=== PATIENT | male | born 1945 | race Caucasian/White ===

== ENCOUNTER 2017-10-07 15:01 | Emergency (ER) | payer SELFPAY ==
[~2017-10-07] VITALS: Ht 167.6 cm; Wt 66.0 kg
[2017-10-07 15:46] LABS: BASOPHILS # (AUTO) 0.03 x10^3/uL (0-0.1); BASOPHILS % (AUTO) 1 % (0-1); EOSINOPHILS # (AUTO) 0.03 x10^3/uL (0-0.4); EOSINOPHILS % (AUTO) 1 % (1-7); LYMPHOCYTES # (AUTO) 1.64 x10^3/uL (1-3.4); LYMPHOCYTES % (AUTO) 27 % (22-44); MD NO; MEAN CORPUSCULAR HEMOGLOBIN 32.3 pg (27.5-34.5); MEAN CORPUSCULAR HGB CONC 34.7 g/dL (33.2-36.2); MEAN PLATELET VOLUME 8.1 fL (7.4-10.4); MONOCYTES # (AUTO) 0.59 x10^3/uL (0.2-0.8); MONOCYTES % (AUTO) 10 % (2-9); NEUTROPHILS # (AUTO) 3.85 x10^3/uL (1.8-6.8); NEUTROPHILS % (AUTO) 63 % (42-75); PLATELET COUNT 237 x10^3/uL (130-400); RED CELL DISTRIBUTION WIDTH 13.1 % (9.4-14.8)
[2017-10-07 15:55] LABS: ALBUMIN 3.6 g/dL (3.4-5.0); ANION GAP 8 mmol/L (5-15); CALCIUM 9.2 mg/dL (8.5-10.1); CHLORIDE 100 mmol/L (98-107); CREATININE 1.36 mg/dL (0.7-1.3)
[2017-10-07] MEDS ORDERED: LOSARTAN (17:32)
[2017-10-07] MEDS ORDERED: LANTUS (17:33)
[2017-10-07] MEDS ORDERED: TIZANIDINE (17:33)
[2017-10-07 17:59] VITALS: BP 150/86
== END 2017-10-07 18:09 | disposition home or self-care (01) ==
LOC: ED 18:00
DX: L03.116 Cellulitis of left lower limb (principal); E11.65 Type 2 diabetes mellitus with hyperglycemia; R10.9 Unspecified abdominal pain; R05 Cough; R06.00 Dyspnea, unspecified; L98.9 Disorder of the skin and subcutaneous tissue, unspecified; Z59.0 Homelessness
CPT/HCPCS: 36415; 36600; 71045; 80048; 82040; 82803; 83690; 85025; 99285

== ENCOUNTER 2017-10-09 18:51 | Emergency (ER) | payer OTHER ==
[~2017-10-09] VITALS: Ht 167.6 cm; Wt 59.1 kg
[~2017-10-09 18:51] MED LIST: LANTUS; LOSARTAN; TIZANIDINE
[2017-10-09] MEDS ORDERED: ACETAMINOPHEN 325 MG TABLET PO ONE (19:30)
[2017-10-09] MEDS ORDERED: ASPIRIN 81 MG TABLET CHEW PO ONE (19:30)
[2017-10-09 19:40] LABS: BASOPHILS # (AUTO) 0.02 x10^3/uL (0-0.1); BASOPHILS % (AUTO) 0 % (0-1); EOSINOPHILS # (AUTO) 0.09 x10^3/uL (0-0.4); EOSINOPHILS % (AUTO) 1 % (1-7); LYMPHOCYTES # (AUTO) 2.62 x10^3/uL (1-3.4); LYMPHOCYTES % (AUTO) 43 % (22-44); MD NO; MEAN CORPUSCULAR HEMOGLOBIN 31.8 pg (27.5-34.5); MEAN CORPUSCULAR VOLUME 93.4 fL (81-97); MONOCYTES # (AUTO) 0.59 x10^3/uL (0.2-0.8); MONOCYTES % (AUTO) 10 % (2-9); NEUTROPHILS # (AUTO) 2.83 x10^3/uL (1.8-6.8); NEUTROPHILS % (AUTO) 46 % (42-75); PLATELET COUNT 205 x10^3/uL (130-400); RED CELL DISTRIBUTION WIDTH 13.2 % (9.4-14.8)
[2017-10-09] MEDS ORDERED: ASPIRIN 81 MG TABLET CHEW ONE ×2 (19:40→19:43)
[2017-10-09] MEDS ORDERED: ACETAMINOPHEN 325 MG TABLET ONE (19:40)
[2017-10-09 19:44] LABS: ALBUMIN 3.2 g/dL (3.4-5.0); ANION GAP 7 mmol/L (5-15); CALCIUM 8.7 mg/dL (8.5-10.1); CHLORIDE 101 mmol/L (98-107)
[2017-10-09 19:51] LABS: ALANINE AMINOTRANSFERASE 54 U/L (12-78); ALKALINE PHOSPHATASE 130 U/L (45-117); BILIRUBIN,TOTAL 0.5 mg/dL (0.2-1.0); CREATININE 1.09 mg/dL (0.7-1.3); TOTAL PROTEIN 7.1 g/dL (6.4-8.2); TROPONIN I < 0.015 ng/mL (0.000-0.045)
[2017-10-09] MEDS ORDERED: OMNIPAQUE 350 MG/ML, 100ML BOTTLE ONE (20:57)
[2017-10-09 22:19] VITALS: BP 108/54
== END 2017-10-09 22:21 | disposition home or self-care (01) ==
LOC: ED 21:47
DX: R07.89 Other chest pain (principal); I10 Essential (primary) hypertension; E11.65 Type 2 diabetes mellitus with hyperglycemia
CPT/HCPCS: 36415; 71045; 71275; 80053; 83880; 84484; 85025; 85379; 93005; 99285; Q9967

== ENCOUNTER 2017-11-03 07:38 | Inpatient (IN) | payer MEDICARE ==
[~2017-11-03] VITALS: Ht 167.6 cm; Wt 67.0 kg
[2017-11-03] MEDS ORDERED: LOSA25TA6 PO (07:55)
[2017-11-03] MEDS ORDERED: ATOR40TA PO (07:55)
[2017-11-03] MEDS ORDERED: GABA300C10 PO (07:55)
[2017-11-03] MEDS ORDERED: ONDANSETRON ODT 4 MG ONE (07:57)
[2017-11-03] MEDS ORDERED: MAALOX/HYOSCYAMINE/LIDOCAINE 45 ML BTL ONE (07:57)
[2017-11-03] MEDS ORDERED: FAMOTIDINE 20 MG/2 ML ONE (07:57)
[2017-11-03] MEDS ORDERED: PLEASE ENTER HEIGHT AND WEIGHT MC SCH (08:00)
[2017-11-03] MEDS ORDERED: FAMOTIDINE 20 MG/2 ML IVP ONE (08:00)
[2017-11-03] MEDS ORDERED: SODIUM CHLORIDE 0.9% 1,000ML IVBOLUS ONE (08:00)
[2017-11-03] MEDS ORDERED: SODIUM CHLORIDE FLUSH 10ML SYR IVF ONE (08:00)
[2017-11-03] MEDS ORDERED: ONDANSETRON ODT 4 MG PO ONE (08:00)
[2017-11-03] MEDS ORDERED: MAALOX/HYOSCYAMINE/LIDOCAINE 45 ML BTL PO ONE (08:00)
[2017-11-03 08:07] LABS: BASOPHILS % (AUTO) 0 % (0-1); EOSINOPHILS # (AUTO) 0.04 x10^3/uL (0-0.4); EOSINOPHILS % (AUTO) 0 % (1-7); LYMPHOCYTES # (AUTO) 0.37 x10^3/uL (1-3.4); LYMPHOCYTES % (AUTO) 4 % (22-44); MD NO; MEAN CORPUSCULAR HGB CONC 33.8 g/dL (33.2-36.2); MEAN CORPUSCULAR VOLUME 91.8 fL (81-97); MEAN PLATELET VOLUME 8.5 fL (7.4-10.4); MONOCYTES # (AUTO) 0.16 x10^3/uL (0.2-0.8); MONOCYTES % (AUTO) 2 % (2-9); NEUTROPHILS # (AUTO) 9.16 x10^3/uL (1.8-6.8); NEUTROPHILS % (AUTO) 94 % (42-75); PLATELET COUNT 158 x10^3/uL (130-400); RED BLOOD COUNT 5.11 x10^6/uL (4.38-5.82); RED CELL DISTRIBUTION WIDTH 13.6 % (9.4-14.8)
[2017-11-03 08:18] LABS: ALANINE AMINOTRANSFERASE 42 U/L (12-78); ALBUMIN 3.5 g/dL (3.4-5.0); ANION GAP 9 mmol/L (5-15); CALCIUM 8.9 mg/dL (8.5-10.1); CHLORIDE 101 mmol/L (98-107)
[2017-11-03 08:21] LABS: ALKALINE PHOSPHATASE 129 U/L (45-117); BILIRUBIN,TOTAL 1.2 mg/dL (0.2-1.0); CREATININE 1.01 mg/dL (0.7-1.3); TOTAL PROTEIN 7.2 g/dL (6.4-8.2)
[2017-11-03] MEDS ORDERED: OMNIPAQUE 350 MG/ML, 100ML BOTTLE ONE (10:28)
[2017-11-03] MEDS ORDERED: ONDANSETRON 2MG/ML, 2ML IVPush PRN (10:30)
[2017-11-03] MEDS ORDERED: ENOXAPARIN 40 MG/0.4 ML ONE (10:31)
[2017-11-03] MEDS ORDERED: NS + 20MEQ KCL 1,000 ML IV ONE (10:31)
[2017-11-03] MEDS: ENOXAPARIN 40 MG/0.4 ML SQ SCH (10:41)
[2017-11-03] MEDS: INSULIN LISPRO 100 UNITS/ML, PEN SQ-INSULIN SCH ×3 (10:41→19:41)
[2017-11-03] MEDS: NS + 20MEQ KCL 1,000 ML IV SCH ×2 (10:41→18:18)
[2017-11-03 11:28] VITALS: BP 154/87
[2017-11-03 11:43] LABS: CLOSTRIDIUM DIFFICILE ANTIGEN POSITIVE; CLOSTRIDIUM DIFFICILE TOXIN NEGATIVE (Negative)
[2017-11-03 12:16] VITALS: BP 154/87
[2017-11-03 13:01] VITALS: BP 151/82
[2017-11-03] MEDS: cloniDINE 0.3MG PATCH TD SCH (13:43)
[2017-11-03 19:13] VITALS: BP 118/72
[2017-11-04 01:19] VITALS: BP 148/69
[2017-11-04] MEDS: NS + 20MEQ KCL 1,000 ML IV SCH ×2 (02:01→11:14)
[2017-11-04 05:05] LABS: BASOPHILS # (AUTO) 0.02 x10^3/uL (0-0.1); BASOPHILS % (AUTO) 0 % (0-1); EOSINOPHILS # (AUTO) 0.04 x10^3/uL (0-0.4); EOSINOPHILS % (AUTO) 1 % (1-7); LYMPHOCYTES # (AUTO) 1.04 x10^3/uL (1-3.4); LYMPHOCYTES % (AUTO) 21 % (22-44); MD NO; MEAN CORPUSCULAR HEMOGLOBIN 31.2 pg (27.5-34.5); MEAN CORPUSCULAR VOLUME 91.8 fL (81-97); MEAN PLATELET VOLUME 8.7 fL (7.4-10.4); MONOCYTES # (AUTO) 0.51 x10^3/uL (0.2-0.8); MONOCYTES % (AUTO) 10 % (2-9); NEUTROPHILS # (AUTO) 3.25 x10^3/uL (1.8-6.8); NEUTROPHILS % (AUTO) 67 % (42-75); PLATELET COUNT 132 x10^3/uL (130-400); RED BLOOD COUNT 4.48 x10^6/uL (4.38-5.82); RED CELL DISTRIBUTION WIDTH 13.5 % (9.4-14.8)
[2017-11-04 05:12] LABS: ALBUMIN 2.7 g/dL (3.4-5.0); ANION GAP 5 mmol/L (5-15); CALCIUM 8.1 mg/dL (8.5-10.1); CHLORIDE 111 mmol/L (98-107)
[2017-11-04 05:17] LABS: ALANINE AMINOTRANSFERASE 31 U/L (12-78); ALKALINE PHOSPHATASE 97 U/L (45-117); BILIRUBIN,TOTAL 1.1 mg/dL (0.2-1.0); CREATININE 0.75 mg/dL (0.7-1.3); TOTAL PROTEIN 5.7 g/dL (6.4-8.2)
[2017-11-04] MEDS: INSULIN LISPRO 100 UNITS/ML, PEN SQ-INSULIN SCH ×4 (07:00→20:20)
[2017-11-04 07:17] VITALS: BP 121/67
[2017-11-04] MEDS: ENOXAPARIN 40 MG/0.4 ML SQ SCH (11:14)
[2017-11-04 13:29] VITALS: BP 121/74
[2017-11-04 18:55] VITALS: BP 162/81
[2017-11-04] MEDS: ZOLPIDEM 5MG TABLET PO PRN (20:02)
[2017-11-05 01:08] VITALS: BP 137/77
[2017-11-05 07:24] VITALS: BP 110/61
[2017-11-05] MEDS: INSULIN LISPRO 100 UNITS/ML, PEN SQ-INSULIN SCH ×4 (08:34→21:20)
[2017-11-05] MEDS: ENOXAPARIN 40 MG/0.4 ML SQ SCH (12:41)
[2017-11-05] MEDS: NS + 20MEQ KCL 1,000 ML IV SCH (12:41)
[2017-11-05 13:45] VITALS: BP 147/78
[2017-11-05 19:40] VITALS: BP 133/72
[2017-11-06 05:14] VITALS: BP 120/69
[2017-11-06] MEDS: NS + 20MEQ KCL 1,000 ML IV SCH (05:53)
[2017-11-06 07:59] VITALS: BP 154/82
[2017-11-06] MEDS: INSULIN LISPRO 100 UNITS/ML, PEN SQ-INSULIN SCH ×4 (09:14→20:53)
[2017-11-06 12:49] VITALS: BP 147/71
[2017-11-06] MEDS: ENOXAPARIN 40 MG/0.4 ML SQ SCH (13:00)
[2017-11-06] MEDS ORDERED: VANCOMYCIN PER PHARMACY MC PRN (14:00)
[2017-11-06] MEDS: VANCOMYCIN 50 MG/ML ORAL SUSP PO SCH ×2 (16:39→20:54)
[2017-11-06 18:57] VITALS: BP 120/69
[2017-11-06] MEDS: ONDANSETRON ODT 4 MG PO PRN (21:09)
[2017-11-07 01:04] VITALS: BP 138/77
[2017-11-07] MEDS: NS + 20MEQ KCL 1,000 ML IV SCH ×2 (01:24→22:58)
[2017-11-07] MEDS: VANCOMYCIN 50 MG/ML ORAL SUSP PO SCH ×4 (05:36→22:15)
[2017-11-07] MEDS: INSULIN LISPRO 100 UNITS/ML, PEN SQ-INSULIN SCH ×4 (08:27→22:17)
[2017-11-07 09:11] VITALS: BP 124/71
[2017-11-07] MEDS: ENOXAPARIN 40 MG/0.4 ML SQ SCH (13:00)
[2017-11-07 14:03] VITALS: BP 117/69
[2017-11-07 19:16] VITALS: BP 150/78
[2017-11-07] MEDS: ZOLPIDEM 5MG TABLET PO PRN (22:15)
[2017-11-08 03:50] VITALS: BP 139/72
[2017-11-08 05:30] LABS: CREATININE 0.68 mg/dL (0.7-1.3)
[2017-11-08] MEDS: VANCOMYCIN 50 MG/ML ORAL SUSP PO SCH ×4 (06:02→21:29)
[2017-11-08 07:02] VITALS: BP 147/80
[2017-11-08] MEDS: INSULIN LISPRO 100 UNITS/ML, PEN SQ-INSULIN SCH ×4 (07:54→21:29)
[2017-11-08] MEDS: ENOXAPARIN 40 MG/0.4 ML SQ SCH (12:36)
[2017-11-08 12:48] VITALS: BP 146/78
[2017-11-08] MEDS: ONDANSETRON ODT 4 MG PO PRN (15:25)
[2017-11-08] MEDS: NS + 20MEQ KCL 1,000 ML IV SCH (17:23)
[2017-11-08 20:53] VITALS: BP 127/59
[2017-11-09 01:21] VITALS: BP 117/66
[2017-11-09] MEDS: VANCOMYCIN 50 MG/ML ORAL SUSP PO SCH ×4 (06:14→21:56)
[2017-11-09 07:12] VITALS: BP 116/64
[2017-11-09] MEDS: INSULIN LISPRO 100 UNITS/ML, PEN SQ-INSULIN SCH ×4 (07:56→20:32)
[2017-11-09] MEDS: ENOXAPARIN 40 MG/0.4 ML SQ SCH (11:39)
[2017-11-09 12:10] VITALS: BP 134/84
[2017-11-09] MEDS: NS + 20MEQ KCL 1,000 ML IV SCH (16:20)
[2017-11-09] MEDS: ONDANSETRON ODT 4 MG PO PRN (16:20)
[2017-11-09 19:35] VITALS: BP 136/91
[2017-11-10 01:59] VITALS: BP 117/58
[2017-11-10] MEDS: VANCOMYCIN 50 MG/ML ORAL SUSP PO SCH ×4 (06:24→20:19)
[2017-11-10 07:19] VITALS: BP 143/83
[2017-11-10] MEDS: INSULIN LISPRO 100 UNITS/ML, PEN SQ-INSULIN SCH ×4 (08:51→20:17)
[2017-11-10] MEDS: NS + 20MEQ KCL 1,000 ML IV SCH (11:30)
[2017-11-10 12:09] VITALS: BP 129/75
[2017-11-10] MEDS: ENOXAPARIN 40 MG/0.4 ML SQ SCH (12:44)
[2017-11-10] MEDS: metroNIDAZOLE 500 MG TABLET PO SCH ×2 (17:38→20:19)
[2017-11-10] MEDS: cloniDINE 0.3MG PATCH TD SCH (17:38)
[2017-11-10] MEDS: ONDANSETRON ODT 4 MG PO PRN (17:38)
[2017-11-10 21:45] VITALS: BP 108/68
[2017-11-11 01:51] VITALS: BP 107/62
[2017-11-11] MEDS: VANCOMYCIN 50 MG/ML ORAL SUSP PO SCH ×4 (05:19→20:35)
[2017-11-11 06:51] VITALS: BP 102/66
[2017-11-11] MEDS: metroNIDAZOLE 500 MG TABLET PO SCH ×3 (07:53→20:35)
[2017-11-11] MEDS: INSULIN LISPRO 100 UNITS/ML, PEN SQ-INSULIN SCH ×4 (07:53→20:35)
[2017-11-11] MEDS: ENOXAPARIN 40 MG/0.4 ML SQ SCH (12:35)
[2017-11-11 12:50] VITALS: BP 124/74
[2017-11-11 20:03] VITALS: BP 98/55
[2017-11-12 02:53] VITALS: BP 149/80
[2017-11-12] MEDS: VANCOMYCIN 50 MG/ML ORAL SUSP PO SCH ×4 (05:11→20:08)
[2017-11-12] MEDS: metroNIDAZOLE 500 MG TABLET PO SCH ×3 (07:41→20:08)
[2017-11-12] MEDS: INSULIN LISPRO 100 UNITS/ML, PEN SQ-INSULIN SCH ×4 (07:43→20:07)
[2017-11-12 07:59] VITALS: BP 126/67
[2017-11-12] MEDS: ONDANSETRON ODT 4 MG PO PRN (11:29)
[2017-11-12 12:54] VITALS: BP 117/61
[2017-11-12] MEDS: ENOXAPARIN 40 MG/0.4 ML SQ SCH (13:28)
[2017-11-12 18:33] VITALS: BP 100/62
[2017-11-13 02:30] VITALS: BP 122/67
[2017-11-13] MEDS: VANCOMYCIN 50 MG/ML ORAL SUSP PO SCH ×4 (05:15→23:17)
[2017-11-13] MEDS: metroNIDAZOLE 500 MG TABLET PO SCH ×3 (07:25→21:39)
[2017-11-13] MEDS: metFORMIN XR 500 MG TAB.ER.24H PO SCH (07:25)
[2017-11-13] MEDS: INSULIN LISPRO 100 UNITS/ML, PEN SQ-INSULIN SCH ×4 (07:28→21:40)
[2017-11-13 07:59] VITALS: BP 119/71
[2017-11-13 14:58] VITALS: BP 114/65
[2017-11-13] MEDS: ENOXAPARIN 40 MG/0.4 ML SQ SCH (17:12)
[2017-11-13 18:35] VITALS: BP 151/78
[2017-11-13] MEDS: INSULIN GLARGINE 100 UNITS/ML, PEN SQ-INSULIN SCH (21:39)
[2017-11-14 01:36] VITALS: BP 122/70
[2017-11-14] MEDS: ONDANSETRON ODT 4 MG PO PRN ×3 (01:52→20:51)
[2017-11-14] MEDS: VANCOMYCIN 50 MG/ML ORAL SUSP PO SCH ×4 (05:35→22:22)
[2017-11-14] MEDS: INSULIN LISPRO 100 UNITS/ML, PEN SQ-INSULIN SCH ×4 (07:36→20:46)
[2017-11-14] MEDS: metroNIDAZOLE 500 MG TABLET PO SCH ×3 (07:36→20:45)
[2017-11-14] MEDS: metFORMIN XR 500 MG TAB.ER.24H PO SCH (07:36)
[2017-11-14 07:41] VITALS: BP 114/69
[2017-11-14 12:36] VITALS: BP 108/65
[2017-11-14] MEDS: ENOXAPARIN 40 MG/0.4 ML SQ SCH (16:35)
[2017-11-14 19:23] VITALS: BP 146/71
[2017-11-14] MEDS: INSULIN GLARGINE 100 UNITS/ML, PEN SQ-INSULIN SCH (20:45)
[2017-11-15 03:28] VITALS: BP 109/56
[2017-11-15 05:31] LABS: CHLORIDE 106 mmol/L (98-107)
[2017-11-15 05:37] LABS: ALANINE AMINOTRANSFERASE 35 U/L (12-78); ALBUMIN 2.8 g/dL (3.4-5.0); ALKALINE PHOSPHATASE 87 U/L (45-117); ANION GAP 6 mmol/L (5-15); BILIRUBIN,TOTAL 0.3 mg/dL (0.2-1.0); CALCIUM 8.9 mg/dL (8.5-10.1)
[2017-11-15] MEDS: VANCOMYCIN 50 MG/ML ORAL SUSP PO SCH ×4 (05:49→20:21)
[2017-11-15] MEDS: INSULIN LISPRO 100 UNITS/ML, PEN SQ-INSULIN SCH ×4 (07:00→20:22)
[2017-11-15] MEDS: metFORMIN XR 500 MG TAB.ER.24H PO SCH (07:51)
[2017-11-15] MEDS: metroNIDAZOLE 500 MG TABLET PO SCH ×3 (07:51→20:21)
[2017-11-15 08:45] VITALS: BP 133/76
[2017-11-15 13:42] VITALS: BP 117/73
[2017-11-15] MEDS: ENOXAPARIN 40 MG/0.4 ML SQ SCH (16:33)
[2017-11-15 19:44] VITALS: BP 110/68
[2017-11-15] MEDS: INSULIN GLARGINE 100 UNITS/ML, PEN SQ-INSULIN SCH (20:22)
[2017-11-16 01:05] VITALS: BP 109/61
[2017-11-16] MEDS: VANCOMYCIN 50 MG/ML ORAL SUSP PO SCH ×2 (06:23→12:32)
[2017-11-16] MEDS: INSULIN LISPRO 100 UNITS/ML, PEN SQ-INSULIN SCH ×2 (07:00→12:32)
[2017-11-16 07:30] VITALS: BP 114/73
[2017-11-16] MEDS: metFORMIN XR 500 MG TAB.ER.24H PO SCH (07:32)
[2017-11-16] MEDS: metroNIDAZOLE 500 MG TABLET PO SCH (07:33)
[2017-11-16] MEDS ORDERED: METR500T PO (09:05)
[2017-11-16 15:23] VITALS: BP 148/80
== END 2017-11-16 16:45 | disposition home or self-care (01) | DRG 372 ==
LOC: ED 09:15 → EDIP 10:39 → 3NE 11:23
PROVIDERS: ADMIT Internal Medicine; ATTEND Internal Medicine
DX: A04.72 Enterocolitis due to Clostridium difficile, not specified as recurrent (principal); K56.600 Partial intestinal obstruction, unspecified as to cause; I10 Essential (primary) hypertension; E78.5 Hyperlipidemia, unspecified; E78.00 Pure hypercholesterolemia, unspecified; Z60.2 Problems related to living alone; F03.90 Unspecified dementia, unspecified severity, without behavioral disturbance, psychotic disturbance, mood disturbance, and anxiety; E11.9 Type 2 diabetes mellitus without complications; Z79.4 Long term (current) use of insulin; Z90.49 Acquired absence of other specified parts of digestive tract; Z90.89 Acquired absence of other organs; Z88.6 Allergy status to analgesic agent; Z79.899 Other long term (current) drug therapy
CPT/HCPCS: 36415; 74018; 74021; 74177; 80053; 82565; 82962; 85025; 87046; 87324; 87427; 87493; 89055; 93005; 96361; 96372; 96374; 99285; G0378; J1650; J3370; J3480; Q0162; Q9967; 92523-GN; J1815; J7030; S0028

== ENCOUNTER 2017-11-27 21:58 | Emergency (ER) | payer MEDICARE ==
[~2017-11-27] VITALS: Ht 177.8 cm; Wt 74.0 kg
[~2017-11-27 21:58] MED LIST changes: +ATOR40TA PO; +GABA300C10 PO; +LOSA25TA6 PO; +METR500T PO
[2017-11-27] MEDS ORDERED: ACETAMINOPHEN 325 MG TABLET PO ONE (22:30)
[2017-11-27] MEDS ORDERED: ACETAMINOPHEN 325 MG TABLET ONE (23:01)
[2017-11-27 23:04] LABS: BASOPHILS # (AUTO) 0.02 x10^3/uL (0-0.1); BASOPHILS % (AUTO) 0 % (0-1); EOSINOPHILS # (AUTO) 0.08 x10^3/uL (0-0.4); EOSINOPHILS % (AUTO) 1 % (1-7); LYMPHOCYTES # (AUTO) 1.85 x10^3/uL (1-3.4); LYMPHOCYTES % (AUTO) 24 % (22-44); MD NO; MEAN CORPUSCULAR HEMOGLOBIN 31.5 pg (27.5-34.5); MEAN CORPUSCULAR HGB CONC 34.2 g/dL (33.2-36.2); MEAN PLATELET VOLUME 8.5 fL (7.4-10.4); MONOCYTES # (AUTO) 0.66 x10^3/uL (0.2-0.8); MONOCYTES % (AUTO) 9 % (2-9); NEUTROPHILS # (AUTO) 5.16 x10^3/uL (1.8-6.8); NEUTROPHILS % (AUTO) 66 % (42-75); PLATELET COUNT 174 x10^3/uL (130-400); RED BLOOD COUNT 4.71 x10^6/uL (4.38-5.82); RED CELL DISTRIBUTION WIDTH 13.6 % (9.4-14.8)
[2017-11-27 23:13] LABS: ALANINE AMINOTRANSFERASE 34 U/L (12-78); ALBUMIN 3.4 g/dL (3.4-5.0); ANION GAP 8 mmol/L (5-15); CALCIUM 9.4 mg/dL (8.5-10.1); CHLORIDE 99 mmol/L (98-107); CREATININE 1.18 mg/dL (0.7-1.3)
[2017-11-27 23:17] LABS: ALKALINE PHOSPHATASE 103 U/L (45-117); BILIRUBIN,TOTAL 0.7 mg/dL (0.2-1.0); TOTAL PROTEIN 6.9 g/dL (6.4-8.2); TROPONIN I < 0.015 ng/mL (0.000-0.045)
[2017-11-27] MEDS ORDERED: SODIUM CHLORIDE 0.9% 1,000ML IVBOLUS ONE (23:30)
[2017-11-27] MEDS ORDERED: OMNIPAQUE 350 MG/ML, 100ML BOTTLE ONE (23:42)
[2017-11-28 00:56] LABS: CULTURE INDICATED? NO; MICROSCOPIC NOT IND
[2017-11-28 03:03] VITALS: BP 124/66
== END 2017-11-28 03:05 | disposition home or self-care (01) ==
LOC: ED 22:41
DX: R19.7 Diarrhea, unspecified (principal); R10.84 Generalized abdominal pain; E78.5 Hyperlipidemia, unspecified; I10 Essential (primary) hypertension; Z87.891 Personal history of nicotine dependence
CPT/HCPCS: 36415; 74177; 80053; 81003; 82962; 83690; 84484; 85025; 93005; 96360; 99285; J7030; Q9967